=== PATIENT | female | born 1955 | race Caucasian/White ===

== ENCOUNTER 2017-07-21 12:38 | Emergency (ER) | payer OTHER ==
[~2017-07-21] VITALS: Ht 167.6 cm; Wt 70.0 kg
[~2017-07-21 12:38] MED LIST: BACL-19 PO; CYAN100028 PO; FOLI0.4T2 PO; HYDR12.53 PO; METO50TA82 PO; NAPR500T4 PO; TRAM50TA2 PO
[2017-07-21] MEDS ORDERED: SODIUM CHLORIDE FLUSH 10ML SYR IVF ONE ×2 (13:00→14:00)
[2017-07-21 13:22] LABS: HEMATOCRIT 45.4 % (34.6-47.8); HEMOGLOBIN 15.4 g/dL (11.7-16.4); WHITE BLOOD COUNT 5.2 x10^3/uL (3.4-10)
[2017-07-21 13:33] LABS: ASPARTATE AMINO TRANSFERASE 22 U/L (15-37); BLOOD UREA NITROGEN 9 mg/dL (7-18)
[2017-07-21 13:38] LABS: IS PT STATUS REG ER OR PRE ER? YES
[2017-07-21] MEDS ORDERED: MORPHINE SULFATE 4 MG/ML, 1ML IVPush PRN (14:00)
[2017-07-21] MEDS ORDERED: ONDANSETRON 2MG/ML, 2ML IVPush ONE (14:00)
[2017-07-21] MEDS ORDERED: SODIUM CHLORIDE 0.9% 1,000ML IVBOLUS ONE (14:00)
[2017-07-21] MEDS ORDERED: METOPROLOL TARTRATE 25 MG TABLET PO ONE (15:42)
[2017-07-21 16:08] VITALS: BP 130/80
[2017-07-22] MEDS ORDERED: AMLO5TAB2 PO (11:37)
== END 2017-07-21 16:31 | disposition home or self-care (01) ==
LOC: ED 15:47
DX: I47.1 Supraventricular tachycardia (principal); I10 Essential (primary) hypertension
CPT/HCPCS: 36415; 71010; 80053; 83880; 84484; 85025; 93005; 99285

== ENCOUNTER 2017-07-23 07:59 | Day surgery (SDC) | payer OTHER ==
[~2017-07-23] VITALS: Ht 167.6 cm; Wt 68.1 kg
[~2017-07-23 07:59] MED LIST changes: +AMLO5TAB2 PO
[2017-07-23] MEDS ORDERED: SODIUM CHLORIDE 0.9% 1,000 ML IV SCH (08:32)
[2017-07-23 08:40] VITALS: BP 121/75
[2017-07-23] MEDS ORDERED: ADENOSINE 6 MG/2 ML ONE (09:48)
[2017-07-23] MEDS ORDERED: MIDAZOLAM 1 MG/ML, 5ML ONE (09:48)
[2017-07-23] MEDS ORDERED: FENTANYL PF 100 MCG/2ML ONE (09:48)
[2017-07-23] MEDS ORDERED: LIDOCAINE 2%, 20ML ONE (09:49)
[2017-07-23] MEDS ORDERED: ISOPROTERENOL 0.2MG/ML, 5ML ONE (09:49)
[2017-07-23] MEDS ORDERED: BACLOFEN 10 MG TABLET PO PRN (11:30)
[2017-07-23] MEDS ORDERED: ACETAMINOPHEN 325 MG TABLET PO PRN (11:30)
[2017-07-23] MEDS ORDERED: NAPROXEN 500 MG TABLET PO PRN (11:30)
[2017-07-24] MEDS ORDERED: AMLODIPINE 5 MG TABLET PO SCH (09:00)
[2017-07-24] MEDS ORDERED: HYDROCHLOROTHIAZIDE 12.5 MG CAPSULE PO SCH (09:00)
== END 2017-07-23 15:54 | disposition home or self-care (01) ==
LOC: CACL 07:59
PROVIDERS: ATTEND Internal Medicine Cardiovascular Disease
DX: I47.1 Supraventricular tachycardia (principal); I10 Essential (primary) hypertension; Z98.890 Other specified postprocedural states
CPT/HCPCS: 93613; 93621; 93623; 93653; 99156; 99157; C1730; C1766; C1894; C2630; J2250; J3010; J3490; J0153

== ENCOUNTER 2020-06-16 18:56 | Emergency (ER) | payer OTHER ==
[~2020-06-16] VITALS: Ht 167.6 cm; Wt 62.8 kg
[~2020-06-16 18:56] MED LIST changes: +AMLO-150 PO; -AMLO5TAB2 PO; +HYDR12.517 PO; -HYDR12.53 PO; +NAPR-685 PO; -NAPR500T4 PO
[2020-06-16] MEDS ORDERED: HYDROcodone/APAP 5/325 TABLET ONE (19:43)
--- NOTE | 2020-06-16 19:51 | NUR ---
Patient BIBA for GLF, states that right before she missed a step and rolled her left ankle and landing on right side/chest. Patient stated that she took a half a norco before coming in. Patient denies LOC and denies sycopal episode. Ice applied to left ankle, VSS. Call light within reach
[2020-06-16] MEDS ORDERED: HYDROcodone/APAP 5/325 TABLET PO ONE (20:00)
--- NOTE | 2020-06-16 20:38 | NUR ---
Pt. refused crutches and instead wanted a walker. walker teaching instructions were given.
[2020-06-16 21:05] VITALS: BP 137/75
== END 2020-06-16 21:08 | disposition home or self-care (01) ==
LOC: ED 20:45
DX: S92.355A Nondisplaced fracture of fifth metatarsal bone, left foot, initial encounter for closed fracture (principal); S20.211A Contusion of right front wall of thorax, initial encounter; I10 Essential (primary) hypertension; M19.90 Unspecified osteoarthritis, unspecified site; W18.39XA Other fall on same level, initial encounter; Y93.89 Activity, other specified; Y92.488 Other paved roadways as the place of occurrence of the external cause; Y99.8 Other external cause status
CPT/HCPCS: 29125; 71250; 99284